=== PATIENT | male | born 1985 | race Hispanic/Latino ===

== ENCOUNTER 2017-01-06 12:55 | Emergency (ER) | payer BC ==
[~2017-01-06] VITALS: Ht 157.5 cm; Wt 96.2 kg
[~2017-01-06 12:55] MED LIST: NOHOMEMEDS
[2017-01-06 13:42] LABS: HEMATOCRIT 50.6 % (38.0-50.0); MCHC 33.8 G/DL (30.0-36.0); MCV 91.8 FL (86-99); PLATELET COUNT 253 K/uL (156-360); RBC DIS.WIDTH-CV 12.9 % (11.8-14.6); RBC DIS.WIDTH-SD 43.4 % (39-53); RED BLOOD COUNT 5.51 M/uL (4.00-5.50); WHITE BLOOD COUNT 13.8 K/uL (4.1-10.2)
[2017-01-06 13:49] LABS: CHLORIDE 101 mEq/L (99-109); POTASSIUM 4.1 mEq/L (3.7-5.4); SODIUM 139 mEq/L (136-147)
[2017-01-06 13:51] LABS: GLUCOSE 125 mg/dL (70-99)
[2017-01-06 13:52] LABS: ANION GAP 10 MEQ/L (2-14)
[2017-01-06 13:54] LABS: GFR ESTIMATE (CALCULATED) > 59 mL/min/
[2017-01-06 13:55] LABS: UREA NITROGEN (BUN) 13 mg/dL (9-23)
[2017-01-06 14:00] LABS: TROP-I INTERPRETATION NEGATIVE; TROPONIN-I 0.23 ng/mL (0.0-0.30)
[2017-01-06 15:15] LABS: TROP-I INTERPRETATION NEGATIVE; TROPONIN-I 0.21 ng/mL (0.0-0.30)
[2017-01-06] MEDS ORDERED: MICROZIDE12.5 M1 PO (16:09)
[2017-01-06] MEDS ORDERED: VENTOLIN HFA18 GM IH (16:09)
[2017-01-06 17:10] VITALS: BP 190/144
== END 2017-01-06 17:12 | disposition home or self-care (01) ==
LOC: EME 12:55 → RME 12:55
PROVIDERS: Physician Assistant
DX: I16.1 Hypertensive emergency (principal); F17.200 Nicotine dependence, unspecified, uncomplicated
CPT/HCPCS: 71020; 71275; 80048; 83880; 84484; 85027; 85379; 93005; 99281; 99283; J2270; J7030

== ENCOUNTER 2017-01-07 13:30 | Inpatient (IN) | payer BC ==
[~2017-01-07] VITALS: Ht 165.1 cm; Wt 93.2 kg
[~2017-01-07 13:30] MED LIST changes: +MICROZIDE12.5 M1 PO; +VENTOLIN HFA18 GM IH
[2017-01-07 14:28] LABS: HEMATOCRIT 46.1 % (38.0-50.0); MCH 31.2 PG (29.0-34.0); MCHC 34.1 G/DL (30.0-36.0); MCV 91.5 FL (86-99); MEAN PLAT.VOLUME 9.8 uM^3 (9.0-12.4); PLATELET COUNT 209 K/uL (156-360); RBC DIS.WIDTH-SD 42.9 % (39-53); RED BLOOD COUNT 5.04 M/uL (4.00-5.50); WHITE BLOOD COUNT 12.3 K/uL (4.1-10.2)
[2017-01-07 14:39] LABS: CHLORIDE 102 mEq/L (99-109); POTASSIUM 3.6 mEq/L (3.7-5.4); SODIUM 138 mEq/L (136-147)
[2017-01-07 14:41] LABS: GLUCOSE 158 mg/dL (70-99)
[2017-01-07 14:42] LABS: ANION GAP 11 MEQ/L (2-14)
[2017-01-07 14:45] LABS: GFR ESTIMATE (CALCULATED) > 59 mL/min/
[2017-01-07 14:49] LABS: TROP-I INTERPRETATION NEGATIVE; TROPONIN-I 0.23 ng/mL (0.0-0.30)
[2017-01-07 14:52] LABS: UREA NITROGEN (BUN) 21 mg/dL (9-23)
[2017-01-07 20:00] VITALS: BP 141/105
[2017-01-07 20:24] LABS: TROP-I INTERPRETATION NEGATIVE; TROPONIN-I 0.28 ng/mL (0.0-0.30)
[2017-01-08 00:10] VITALS: BP 147/98
[2017-01-08 01:19] LABS: TROP-I INTERPRETATION NEGATIVE; TROPONIN-I 0.24 ng/mL (0.0-0.30)
[2017-01-08 03:07] VITALS: BP 143/95
[2017-01-08 03:36] LABS: INFLUENZA A VIRAL ANTIGEN NEGATIVE; INFLUENZA B VIRAL ANTIGEN NEGATIVE
[2017-01-08 07:04] LABS: HEMATOCRIT 45.3 % (38.0-50.0); MCHC 32.9 G/DL (30.0-36.0); MCV 94.4 FL (86-99); MEAN PLAT.VOLUME 10.6 uM^3 (9.0-12.4); PLATELET COUNT 225 K/uL (156-360); RBC DIS.WIDTH-CV 13.1 % (11.8-14.6); RBC DIS.WIDTH-SD 46.1 % (39-53); WHITE BLOOD COUNT 12.3 K/uL (4.1-10.2)
[2017-01-08 07:23] LABS: ANION GAP 9 MEQ/L (2-14); CHLORIDE 104 MEQ/L (99-109); GFR ESTIMATE (CALCULATED) > 59 mL/min/; SAMPLE HEMOLYSIS CHECK 0; SAMPLE ICTERIC CHECK 0; SAMPLE LIPEMIA CHECK 0; SODIUM 140 MEQ/L (136-147); UREA NITROGEN (BUN) 26 mg/dL (9-23)
[2017-01-08 07:25] VITALS: BP 145/103
[2017-01-08 07:25] LABS: GLUCOSE 99 mg/dL (70-99); POTASSIUM 4.4 MEQ/L (3.7-5.4)
[2017-01-08 07:38] LABS: ADD MIUA? YES; BILIRUBIN NEGATIVE; BLOOD MODERATE; COLOR YELLOW ((YELLOW)); GLUCOSE (STRIP) NEGATIVE; KETONES NEGATIVE; LEUKOCYTES NEGATIVE; NITRITE NEGATIVE; PROTEIN (STRIP) 100
[2017-01-08 08:20] LABS: BACTERIA NONE SEEN /HPF; EPITHELIAL CELLS RARE /HPF; HYALINE CASTS 0-5 /LPF; MUCUS TRACE /LPF; WHITE BLOOD CELLS 0-5 /HPF (0-5)
[2017-01-08 09:45] LABS: CREATINE KINASE 394 IU/L (1-294)
[2017-01-08 10:35] LABS: C3 COMPLEMENT 199 MG/DL (58-170); C4 COMPLEMENT 31 MG/DL (10-40)
[2017-01-08 10:59] LABS: AHBS INDEX 0; HBSG INDEX 0.29; HEPATITIS B SURFACE ANTIBODY Nonreactive; HPCA INDEX 0.14
[2017-01-08 11:00] LABS: ANTI-HEPATITIS B CORE (TOTAL) Nonreactive; HBCT INDEX 0.14
[2017-01-08 11:20] VITALS: BP 158/107
[2017-01-08 16:11] VITALS: BP 165/115
[2017-01-08 20:37] VITALS: BP 165/105
[2017-01-08 21:34] LABS: AMPHETAMINES QUANT VALUE 0 NG/ML; BARBITUATES QUANT VALUE 0 NG/ML; BENZODIAZEPINES QUANT VALUE 0 NG/ML; BENZODIAZEPINES, URINE SCREEN Negative (200 ng/mL); MARIJUANA QUANT VALUE 0 NG/ML; OPIATES QUANTITATIVE VALUE 0 NG/ML; PHENCYCLIDINE QUANT VALUE 0 NG/ML; UR CREATININE CONCENTRATION 144.6 MG/DL
[2017-01-09 00:05] VITALS: BP 165/102
[2017-01-09 05:08] VITALS: BP 158/102
[2017-01-09 07:15] LABS: ALKALINE PHOSPHATASE 42 IU/L (3-129); ANION GAP 10 MEQ/L (2-14); CHLORIDE 104 MEQ/L (99-109); GFR ESTIMATE (CALCULATED) > 59 mL/min/; GLUCOSE 115 mg/dL (70-99); MAGNESIUM 2.3 mg/dl (1.3-2.7); POTASSIUM 4.9 MEQ/L (3.7-5.4); SAMPLE HEMOLYSIS CHECK 0; SAMPLE ICTERIC CHECK 0; SAMPLE LIPEMIA CHECK 0; SODIUM 137 MEQ/L (136-147); TOTAL BILIRUBIN 0.5 MG/DL (0.0-1.0); UREA NITROGEN (BUN) 30 mg/dL (9-23)
[2017-01-09 07:17] LABS: EOSINOPHIL (%) 0.1 % (0-5); HEMATOCRIT 46.1 % (38.0-50.0); IMMATURE GRANULOCYTE (%) 0.9 % (0.0-0.7); IMMATURE GRANULOCYTE COUNT 0.1 K/uL; INSTRUMENT ABS NEUTROPHIL CT 9.2 K/uL; LYMPHOCYTE COUNT 1.3 K/uL (1.0-2.8); MCH 30.7 PG (29.0-34.0); MCHC 32.3 G/DL (30.0-36.0); MCV 95.1 FL (86-99); MEAN PLAT.VOLUME 10.6 uM^3 (9.0-12.4); MONOCYTE (%) 4.1 % (3-12); MONOCYTE COUNT 0.5 K/uL (0-0.8); NEUTROPHIL (%) 82.5 % (45-76); NEUTROPHIL COUNT 9.2 K/uL (1.8-6.4); PLATELET COUNT 253 K/uL (156-360); RBC DIS.WIDTH-CV 12.7 % (11.8-14.6); RED BLOOD COUNT 4.85 M/uL (4.00-5.50); WHITE BLOOD COUNT 11.2 K/uL (4.1-10.2)
[2017-01-09 07:23] VITALS: BP 160/114
[2017-01-09 11:15] VITALS: BP 160/108
[2017-01-09 13:11] LABS: URINE TOTAL PROTEIN 215 MG/DL (0-10)
[2017-01-09 15:45] VITALS: BP 141/89
[2017-01-09 15:50] LABS: IFE GEL NO. 33-9
[2017-01-09 21:38] VITALS: BP 138/95
[2017-01-10 00:47] VITALS: BP 141/96
[2017-01-10 05:49] VITALS: BP 123/95
[2017-01-10 06:55] LABS: ANION GAP 11 MEQ/L (2-14); CHLORIDE 108 MEQ/L (99-109); GFR ESTIMATE (CALCULATED) > 59 mL/min/; GLUCOSE 107 mg/dL (70-99); POTASSIUM 4.5 MEQ/L (3.7-5.4); SAMPLE HEMOLYSIS CHECK 0; SAMPLE ICTERIC CHECK 0; SAMPLE LIPEMIA CHECK 0; SODIUM 140 MEQ/L (136-147); UREA NITROGEN (BUN) 35 mg/dL (9-23)
[2017-01-10 07:45] VITALS: BP 155/107
[2017-01-10 09:56] VITALS: BP 159/111
[2017-01-10 09:56] LABS: GLOMERULAR BASEMENT MEMB ABY+ <1.0 AI (<1.0); MYELOPEROXIDASE ANTIBODY (MPO) <1.0 AI (<1.0); PROTEINASE-3 ANTIBODY+ <1.0 AI (<1.0)
[2017-01-10] MEDS ORDERED: VENTOLIN HFA18 GM IH (11:14)
[2017-01-10] MEDS ORDERED: PREDNISONE10 MG PO (11:16)
[2017-01-10] MEDS ORDERED: LISINOPRIL20 MG PO (11:18)
[2017-01-10] MEDS ORDERED: SPIRONOLACTONE25 MG PO (11:18)
[2017-01-10] MEDS ORDERED: HYDROCHLOROTHIA25 MG PO (11:18)
[2017-01-10] MEDS ORDERED: CEFDINIR300 MG PO (11:18)
[2017-01-10] MEDS ORDERED: LOPRESSOR50 MG PO (11:18)
[2017-01-10 13:00] VITALS: BP 156/102
[2017-01-10 13:56] LABS: IFE GEL NO. 34-7
[2017-01-13 21:50] LABS: Cryoglobulin, Qualitative None Detected (None Detected)
== END 2017-01-10 13:10 | disposition home or self-care (01) | DRG 304 ==
LOC: EME 13:30 → EDOF 15:25 → 4EAST 15:25
PROVIDERS: Emergency Medicine; Hospitalist; Internal Medicine
DX: I16.0 Hypertensive urgency (principal); I50.23 Acute on chronic systolic (congestive) heart failure; N17.9 Acute kidney failure, unspecified; J44.0 Chronic obstructive pulmonary disease with (acute) lower respiratory infection; J18.9 Pneumonia, unspecified organism; I25.10 Atherosclerotic heart disease of native coronary artery without angina pectoris; J20.9 Acute bronchitis, unspecified; E87.6 Hypokalemia; F17.200 Nicotine dependence, unspecified, uncomplicated; D72.829 Elevated white blood cell count, unspecified; R50.9 Fever, unspecified; R73.9 Hyperglycemia, unspecified; Z88.1 Allergy status to other antibiotic agents; N18.2 Chronic kidney disease, stage 2 (mild); R31.29 Other microscopic hematuria; R80.9 Proteinuria, unspecified; E66.9 Obesity, unspecified; R94.31 Abnormal electrocardiogram [ECG] [EKG]; Z68.34 Body mass index [BMI] 34.0-34.9, adult; I13.0 Hypertensive heart and chronic kidney disease with heart failure and stage 1 through stage 4 chronic kidney disease, or unspecified chronic kidney disease
CPT/HCPCS: 71020; 76770; 80048; 80053; 80306 90; 81003; 82088 90; 82550; 82570; 82595 90; 83520 90; 83605; 83735; 83880; 84156; 84244 90; 84300; 84484; 85025; 85027; 86021 90; 86038; 86160; 86334; 86335; 86704; 86706; 86803; 87040; 87340; 87502; 93005; 93306; 93975; 94640; 94640 76; 94799; 99202; 99281; 99285; J0696; J1644; J7050; J7512

== ENCOUNTER 2017-10-23 10:13 | Emergency (ER) | payer BC ==
[~2017-10-23] VITALS: Ht 165.1 cm; Wt 78.6 kg
[~2017-10-23 10:13] MED LIST changes: +CEFDINIR300 MG PO; +HYDROCHLOROTHIA25 MG PO; +LISINOPRIL20 MG PO; +LOPRESSOR50 MG PO; +PREDNISONE10 MG PO; +SPIRONOLACTONE25 MG PO
[2017-10-23 11:05] LABS: BASOPHIL (%) 0.5 % (0-1); BASOPHIL COUNT 0.1 K/uL (0-0.1); EOSINOPHIL (%) 2.6 % (0-5); EOSINOPHIL COUNT 0.3 K/uL (0-0.3); HEMATOCRIT 44.5 % (38.0-50.0); HEMOGLOBIN 15.2 G/DL (12.5-16.6); IMMATURE GRANULOCYTE (%) 0.3 % (0.0-0.7); LYMPHOCYTE (%) 26.7 % (15-42); MCH 29.4 PG (29.0-34.0); MCHC 34.2 G/DL (30.0-36.0); MCV 86.1 FL (86-99); MONOCYTE (%) 7.6 % (3-12); MONOCYTE COUNT 0.9 K/uL (0-0.8); NEUTROPHIL (%) 62.3 % (45-76); NEUTROPHIL COUNT 6.9 K/uL (1.8-6.4); PLATELET COUNT 319 K/uL (156-360); RBC DIS.WIDTH-CV 12.7 % (11.8-14.6); RBC DIS.WIDTH-SD 39.5 % (39-53); RED BLOOD COUNT 5.17 M/uL (4.00-5.50); WHITE BLOOD COUNT 11.1 K/uL (4.1-10.2)
[2017-10-23 11:14] LABS: ALBUMIN 4.2 g/dL (3.2-4.8); CHLORIDE 106 mEq/L (99-109); POTASSIUM 3.7 mEq/L (3.7-5.4); SODIUM 137 mEq/L (136-147)
[2017-10-23 11:16] LABS: GLUCOSE 104 mg/dL (70-99); TOTAL PROTEIN 7.4 g/dL (6.4-8.3)
[2017-10-23 11:18] LABS: TOTAL BILIRUBIN 0.3 mg/dL (0.0-1.0)
[2017-10-23 11:20] LABS: ALKALINE PHOSPHATASE 63 IU/L (3-129); GFR ESTIMATE (CALCULATED) > 59 mL/min/ (58.99-99999)
[2017-10-23 11:21] LABS: UREA NITROGEN (BUN) 20 mg/dL (9-23)
[2017-10-23 11:22] LABS: AST (GOT) 20 IU/L (2-34)
[2017-10-23 11:23] LABS: ALT (GPT) 12 IU/L (3-49)
[2017-10-23 14:41] VITALS: BP 149/111
== END 2017-10-23 14:10 | disposition home or self-care (01) ==
LOC: EME 10:13
PROVIDERS: Emergency Medicine
DX: H54.61 Unqualified visual loss, right eye, normal vision left eye (principal); Z82.3 Family history of stroke; I10 Essential (primary) hypertension; E11.9 Type 2 diabetes mellitus without complications; F17.200 Nicotine dependence, unspecified, uncomplicated; Z88.1 Allergy status to other antibiotic agents
CPT/HCPCS: 70553; 80053; 85025; 93005; 99281; 99285; J2060; J7030